=== PATIENT | male | born 1990 | race Caucasian/White ===

== ENCOUNTER 2016-09-06 16:47 | Emergency (ER) | payer BC ==
--- NOTE | 2016-09-06 17:23 | EDM.PDOC ---
ED HISTORY OF PRESENT ILLNESS - General Chief Complaint: Respiratory Problem Stated Complaint: COUGH/COLD/CONGESTION Time Seen by Provider: 09/06/16 17:23 Source of Information: Reports: Patient, Family History Limitations: Reports: No limitations - History of Present Illness INITIAL COMMENTS - FREE TEXT/NARRATIVE: History of present illness: [26-year-old male comes in complaining of sore throat, congestion and cough worsening over the last 3-4 days] Review of systems: As per history of present illness and below otherwise all systems reviewed and negative. Past medical history: As per history of present illness and as reviewed below otherwise noncontributory. Surgical history: As per history of present illness and as reviewed below otherwise noncontributory. Social history: No reported history of drug or alcohol abuse. Family history: As per history of present illness and as reviewed below otherwise noncontributory. Physical exam: HEENT: Atraumatic, normocephalic, pupils reactive, negative for conjunctival pallor or scleral icterus, mucous membranes moist with oral pharyngeal erythema without white patchy exudate, left TM red and dull, right TM pink with pearly light reflex, neck supple, nontender, trachea midline. Lungs: Breath sounds equal bilaterally, small scattered bronchial vesicular sounds that clear with a cough, chest nontender. Heart: S1S2, regular, negative for clicks, rubs, or JVD. Abdomen: Soft, nondistended, nontender. Negative for masses or hepatosplenomegaly. Negative for costovertebral tenderness. Pelvis: Stable nontender. Genitourinary: Deferred. Rectal: Deferred. Extremities: Atraumatic, negative for cords or calf pain. Neurovascular unremarkable. Neuro: Awake, alert, oriented. Cranial nerves II through XII unremarkable. Cerebellum unremarkable. Motor and sensory unremarkable throughout. Exam nonfocal. Diagnostics: [] Therapeutics: [] Impression: [Viral syndrome, pharyngitis, left otitis media] Plan: [Antibiotics, Tessalon Perles] Definitive disposition and diagnosis as appropriate pending reevaluation and review of above. - Related Data Allergies/ADRs: Allergies Allergy/AdvReac Type Severity Reaction Status Date / Time No Known Allergies Allergy Verified 09/06/16 16:56 Home Meds: Home Meds Amoxicillin/Potassium Clav [Augmentin 875-125 Tablet] 1 each PO BID #20 tablet 04/29/17 [Rx] Benzonatate [Tessalon Perles] 200 mg PO TID #30 cap 09/06/16 [Rx] methylPREDNISolone [Medrol] 4 mg PO DAILY #21 tab.ds.pk 09/06/16 [Rx] Past Medical History - Past Health History Medical/Surgical History: Denies Medical/Surgical History Respiratory History: Reports: Asthma Social & Family History - Family History Family Medical History: Noncontributory - Tobacco Use Smoking Status *Q: Former Smoker Used Tobacco, but Quit: Yes Month Tobacco Last Used: 1 - Caffeine Use Caffeine Use: Reports: None - Recreational Drug Use Recreational Drug Use: No ED ROS GENERAL - Review of Systems Review Of Systems: See Below (The history of present illness) ED EXAM, GENERAL - Physical Exam Exam: See Below (The history of present illness) Course - Vital Signs Last Recorded V/S: Last Vital Signs Temp 38.6 C H 09/06/16 16:57 Pulse 101 H 09/06/16 16:57 Resp 24 H 09/06/16 16:57 BP 128/76 09/06/16 16:57 Pulse Ox 96 09/06/16 16:57 Departure - Departure Time of Disposition: 17:29 Disposition: Home, Self-Care 01 Condition: good Clinical Impression: Pharyngitis, Otitis media, Cough Forms: ED Department Discharge Additional Instructions: The following information is given to patients seen in the emergency department who are being discharged to home. This information is to outline your options for follow-up care. We provide all patients seen in our emergency department with a follow-up referral. The need for follow-up, as well as the timing and circumstances, are variable depending upon the specifics of your emergency department visit. If you don't have a primary care physician on staff, we will provide you with a referral. We always advise you to contact your personal physician following an emergency department visit to inform them of the circumstance of the visit and for follow-up with them and/or the need for any referrals to a consulting specialist. The emergency department will also refer you to a specialist when appropriate. This referral assures that you have the opportunity for follow-up care with a specialist. All of these measure are taken in an effort to provide you with optimal care, which includes your follow-up. Under all circumstances we always encourage you to contact your private physician who remains a resource for coordinating your care. When calling for follow-up care, please make the office aware that this follow-up is from your recent emergency room visit. If for any reason you are refused follow-up, please contact the [facility] Emergency Department at and asked to speak to the emergency department charge nurse. Take medication as directed Followup with PCP 1-2 days Return to ED as needed as discussed
[2016-09-06 18:41] VITALS: BP 129/61
== END 2016-09-06 18:29 | disposition home or self-care (01) ==
LOC: MW.ED 16:47
DX: J02.9 Acute pharyngitis, unspecified (principal); H66.92 Otitis media, unspecified, left ear
CPT/HCPCS: 99283

== ENCOUNTER 2022-07-06 15:42 | Emergency (ER) | payer BC ==
[2022-07-06] MEDS ORDERED: Sodium Chloride 0.9% 10 ML Syringe FLUSH PRN (16:13)
[2022-07-06] MEDS ORDERED: Sodium Chloride 0.9% 2.5 ML Syringe FLUSH PRN (16:13)
[2022-07-06] MEDS ORDERED: Sodium Chloride 0.9% 1,000 ML IV STA (16:14)
[2022-07-06] MEDS ORDERED: Promethazine 25 MG/ML SDV IM STA (16:15)
[2022-07-06] MEDS ORDERED: Ketorolac 30 MG/ML SDV IVPUSH STA (16:15)
[2022-07-06 16:36] LABS: CORONAVIRUS COVID-19 NAA POSITIVE (NEGATIVE); INFLUENZA A NAA NEGATIVE (NEGATIVE); INFLUENZA B NAA NEGATIVE (NEGATIVE)
[2022-07-06 18:17] LABS: C. TRACHOMATIS BY PCR NOT DETECTED; N. GONORRHOEAE BY PCR NOT DETECTED
[2022-07-06 19:22] VITALS: BP 96/60; PULSE 63
== END 2022-07-06 19:20 | disposition home or self-care (01) ==
LOC: MW.ED 15:42
DX: U07.1 COVID-19 (principal); J45.909 Unspecified asthma, uncomplicated; Z11.3 Encounter for screening for infections with a predominantly sexual mode of transmission
CPT/HCPCS: 0240U; 36415; 80053; 85025; 86308; 86592; 86695; 86696; 87070; 87389; 87491; 87591; 96361; 96372; 96374; 99284; J1885; J2550; J3490; J7030; 99283

== ENCOUNTER 2023-12-13 13:37 | Emergency (ER) | payer BC, MEDICAID ==
[2023-12-13 13:50] VITALS: BP 119/80
[2023-12-13 14:16] VITALS: PULSE 65
== END 2023-12-13 14:16 | disposition home or self-care (01) ==
LOC: MW.ED 13:37
DX: L23.9 Allergic contact dermatitis, unspecified cause (principal)
CPT/HCPCS: 99282; 99283